=== PATIENT | female | born 1950 | race Caucasian/White ===

== ENCOUNTER 2016-10-07 12:59 | Outpatient (CLI) | payer MEDICARE ==
[~2016-10-07 12:59] MED LIST: AFRIN NASAL SP0.05 %; ALBUTEROL HFA60 DOSE IN; AZELASTINE HCL0.1 % IN; AZELASTINE IN; BACTRIM DS1 TAB PO; BENADRYL25 MG PO; BUDESONIDE IN; CALCIUM/VITAMI600 MG PO; COMBIVENT RESPIMAT IN; DILAUDID4 MG PO; EYE LUBRICANT; FA-8800 MCG PO; LEVAQUIN750 MG PO; LEVOTHYROXINE100 MCG PO; MAG6464 MG PO; MAXZIDE-25 PO; MEDROL4 MG PO; OMEPRAZOLE20 M1 PO; OXYCONTIN CR15 MG PO; POTASSIUM CHLO20 ME4 PO; PROLIA60 MG/ML; PROLIA60 MG/ML INJ; RASUVO10 MG/0.2; ROXICODONE5 MG PO; VITAMIN B12100 MCG; [UNRECOGNIZED DRUG - OTHER]
--- NOTE | 2016-10-11 10:45 | DIAGNOSTIC IMAGING REPORT ---
REFERRING PHYSICIAN/PROVIDER: Brad Krishnamurthy MD CONSULTING STAMPING DIE TRY OUT WORKER: Geoffrey Becker MD PROCEDURE: M-mode 2D echocardiography with spectral and color flow Doppler INDICATION: HEART MURMUR Procedure: A two-dimensional transthoracic echocardiogram with color flow and Doppler was performed. The study quality was technically adequate. The patient was in normal sinus rhythm during the exam. Left Ventricle: The left ventricle is normal in size. There is borderline concentric left ventricular hypertrophy. Left ventricular systolic function is normal. The ejection fraction is estimated to be 60-65%. There are no obvious focal wall motion abnormalities noted but poor endocardial definition reduces the sensitivity for the detection of such. Assessment of diastolic parameters indicates a relaxation abnormality of the left ventricle, consistent with normal filling pressures. Right Ventricle: The right ventricle is normal in size and function. Atria: Both atria are normal in size. The interatrial septum is intact with no evidence for an atrial septal defect. Mitral Valve: The mitral valve is normal in structure and function. There is mild mitral annular calcification. There is trace mitral regurgitation. Aortic Valve: The aortic valve is trileaflet. There is mild aortic valve sclerosis. The aortic valve opens well. There is no hemodynamically significant valvular aortic stenosis. There is no aortic regurgitation. Tricuspid Valve: The tricuspid valve is normal in structure and function. There is trace tricuspid regurgitation. Pulmonary artery pressures cannot be estimated because of the lack of a measurable TR jet velocity. Pulmonic Valve: The pulmonic valve is not well visualized. There is trace pulmonic regurgitation. There is no significant valvular heart disease. Great Vessels: The aortic root is normal size. The ascending aorta is normal in size. The IVC is of normal diameter and collapses greater than 50% with a sniff. This suggests a low right atrial pressure of 3 mm Hg. Pericardium/ Pleura There is no pericardial effusion. IMPRESSION: The left ventricle is normal in size. Left ventricular systolic function is normal. The ejection fraction is estimated to be 60-65%. There are no obvious focal wall motion abnormalities noted but poor endocardial definition reduces the sensitivity for the detection of such. Assessment of diastolic parameters indicates a relaxation abnormality of the left ventricle, consistent with normal filling pressures. The right ventricle is normal in size and function. Pulmonary artery pressures cannot be estimated because of the lack of a measurable TR jet velocity. Both atria are normal in size. There is no significant valvular heart disease. The aortic root is normal size.
== END 2016-10-07 23:00 ==
LOC: US SRH 12:59
DX: R93.1 Abnormal findings on diagnostic imaging of heart and coronary circulation (principal)